=== PATIENT | male | born 1970 | race Caucasian/White ===

== ENCOUNTER 2019-02-16 22:29 | Inpatient (IN) ==
[2019-02-16] MEDS ORDERED: Aspirin 81 MG TAB.CHEW PO ONE (22:47)
[2019-02-16 23:07] LABS: Basophils # 0.1 K/mcL (0.0-0.2); Basophils % 0.7 %; Eosinophils # 0.3 K/mcL (0.0-0.6); Hemoglobin 16.3 g/dL (12.9-16.9); Immature Granulocytes % 0.3 % (0-4); Lymphocytes % 33.3 %; Mean Corpuscular Hemoglobin 29.3 pg (28.0-33.3); Mean Corpuscular Volume 86.3 fL (83.0-100.0); Mean Platelet Volume 9.9 fL (9.4-12.4); Monocytes # 0.7 K/mcL (0.0-1.3); Monocytes % 7.7 %; Neutrophils # 4.9 K/mcL (1.6-8.9); Platelet Count 305 K/mcL (140-400); Red Blood Count 5.56 M/mcL (4.19-5.50); Red Cell Distribution Width 12.7 % (11.5-14.5)
[2019-02-16 23:14] LABS: Prothrombin Time 10.7 Seconds (9.4-12.1)
[2019-02-16] MEDS: Nitroglycerin 0.4 MG TAB.SUBL SL PRN ×2 (23:14→23:21)
[2019-02-16 23:16] LABS: Activated Partial Thrombo Time 32.2 Seconds (26.0-36.0)
[2019-02-16 23:26] LABS: BUN/Creatinine Ratio 13 (6-26); Blood Urea Nitrogen 15 mg/dL (6-20); Calcium 9.3 mg/dL (8.6-10.3); Carbon Dioxide 26 mEq/L (23-29); Chloride 106 mEq/L (98-107); Glucose 123 mg/dL (70-105); Osmolality,Calculated 290 (280-300); Potassium 3.9 mEq/L (3.5-5.1); Sodium 139 mEq/L (136-145); eGFR For Non-African Americans > 60 (> 60)
[2019-02-16 23:27] LABS: Troponin I < 0.03 ng/mL (< 0.04)
--- NOTE | 2019-02-16 23:57 | Emergency Department Note ---
Disposition Clinical Impression: Chest pain Qualifiers: Chest pain type: unspecified Qualified Code(s): R07.9 - Chest pain, unspecified Disposition: Home, Self-Care Condition: Fair Time of Disposition: 00:18 Chest Pain HPI - General Chief Complaint: ED Chest Pain Stated Complaint: "CP, both arms tingling" Time Seen by Provider: 02/16/19 22:41 Source: patient Limitations: no limitations Vital Signs Reviewed: Yes Nursing Notes Reviewed: Yes - History of Present Illness HPI Narrative: 48-year-old male presents from home with bedside for evaluation of chest pain. He has had 2 days of what he describes as acid reflux symptoms which she described as a epigastric burning sensation with no belching or odd taste in his mouth.. Somewhat improved with Tums. He has no history of acid reflux. Today, 45 minutes prior to arrival, patient began having sharp burning left-sided chest pain which radiated to the bilateral arms and was associated with nausea and dry heaving. No dyspnea or diaphoresis. PMH: None Daily medications: None Habits: Current every day 1 pack per day smoker 15 years Family history: Brother from [place] in his mid 50s. Both parents had [place] at age is less than 65. ROS: Positive: Epigastric symptoms, left-sided sharp stabbing chest pain, nausea, dry heaving, bilateral arm pain Negative: Fever, chills, palpitations, dyspnea, diaphoresis, unusual back pain, flank pain, change of bowel or bladder habits Severity scale (1-10): 4 - Related Data Home Medications Medication Instructions Recorded Confirmed Fluticasone Propionate Nasal 16 gm NS DAILY 02/16/19 02/16/19 [Flonase] Previous Rx's Medication Instructions Recorded Loratadine [Claritin] 10 mg PO DAILY #14 tablet 02/17/16 Allergies Allergy/AdvReac Type Severity Reaction Status Date / Time No Known Allergies Allergy Verified 02/17/16 11:01 All systems ED: reviewed and negative except as stated. Review of Systems: As Per HPI Chest Pain PMH - Past Medical History Medical history: Reports: no medical history Psychiatric history: Reports: no psych history - Social History Smoking Status: Current every day smoker Alcohol use: Reports: none Drug use: Reports: marijuana Physical Exam Vital Signs Reviewed General: Patient is alert, oriented, and in no acute distress. Head: atraumatic, normocephalic Eye: normal appearance, PERRL, EOMI, no scleral icterus, no conjunctival injection ENT: mucous membranes moist, normal external ear exam Neck: normal inspection, trachea midline, full ROM Chest: normal inspection, symmetric chest rise Respiratory: Good respiratory effort. Bilateral breath sounds are clear without wheezing, crackles, or rhonchi. Cardiovascular: Regular rate and rhythm. No clicks, rubs, gallops, or murmors. Normal heart sounds. Vital radial and posterior tibial pulses 2/4 equal. No pedal edema. Abdomen: Bowel sounds present normoactive. Abdomen is soft, nondistended, and nontender. No guarding or rebound. No organomegaly noted. Musculoskeletal: Spontaneously moving all extremities. Skin: warm, dry, intact. Neuro: GCS 15. No focal neurologic deficits observed. Psych: Patient's affect is appropriate for situation. - General Limitations: no limitations General appearance: alert Course Course Narrative: EKG #1 EKG dated 02/16/19 at 22:30 interpreted as sinus rhythm with a rate of 66. SC 150, QRS 105, QTC 394. Left axis. Nonspecific ST-T changes. No previous EKG for comparison. Computer readout shows anterior IL; this is incorrect EKG #1 shows no acute ischemic changes. Chest x-ray is unremarkable. Initial laboratory values unremarkable; initial troponin is within normal limits. This is, however, less than one hour after onset of his most acute chest pain. Patient's chest pain did improve somewhat with nitroglycerin. In the beginning to return. We will apply nitroglycerin paste. I discussed the above with the patient in detail. I am clinically concerned given his family history, his story, and risk factors of smoking. He is in agreement with admission for continued evaluation of his chest pain. EKG #2 EKG dated 02/17/2019 at 00:15 interpreted as sinus rhythm with rate of 57. SC 141, QRS 104, QTC 411. Normal axis. Nonspecific ST-T changes. No acute ischemic changes compared to EKG #1 above. I discussed the above with the admitting hospitalist, Dr. Helms, who agrees to accept the patient for continued evaluation monitoring of his chest pain. Chest X-Ray 02/16/19 22:47 IMPRESSION: No acute cardiopulmonary process D/ / Charly Shahid / Charly Shahid Interpreting Provider: Charly Shahid Vital Signs Temperature 99.0 F 02/16/19 22:43 Pulse Rate 65 02/16/19 22:43 Respiratory Rate 16 02/16/19 22:43 Blood Pressure 175/109 02/16/19 22:43 O2 Sat by Pulse Oximetry 99 02/16/19 22:43 Temperature 99.0 F 02/16/19 22:43 Pulse Rate 60 02/17/19 00:06 Respiratory Rate 16 02/17/19 00:06 Blood Pressure 151/93 02/17/19 00:06 O2 Sat by Pulse Oximetry 97 02/17/19 00:06 Oxygen Delivery Oxygen Delivery Room Air Chest Pain - Lab Data Result diagrams: 02/16/19 22:53 02/16/19 22:53 Lab Results 02/16/19 02/16/19 02/16/19 Range/Units 22:53 22:53 22:53 WBC 8.9 (4.3-11.1) K/mcL RBC 5.56 H (4.19-5.50) M/mcL Hgb 16.3 (12.9-16.9) g/dL Hct 48.0 (37.5-50.1) % MCV 86.3 (83.0-100.0) fL MCH 29.3 (28.0-33.3) pg MCHC 34.0 (31.6-35.5) g/dL RDW 12.7 (11.5-14.5) % Plt Count 305 (140-400) K/mcL MPV 9.9 (9.4-12.4) fL Immature Gran % 0.3 (0-4) % Seg Neutrophils % 55.0 % Lymphocytes % 33.3 % Monocytes % 7.7 % Eosinophils % 3.0 % Basophils % 0.7 % Neutrophils # 4.9 (1.6-8.9) K/mcL Lymphocytes # 3.0 (0.6-4.6) K/mcL Monocytes # 0.7 (0.0-1.3) K/mcL Eosinophils # 0.3 (0.0-0.6) K/mcL Basophils # 0.1 (0.0-0.2) K/mcL PT 10.7 (9.4-12.1) Seconds INR 1.0 APTT 32.2 (26.0-36.0) Seconds Sodium 139 (136-145) mEq/L Potassium 3.9 (3.5-5.1) mEq/L Chloride 106 (98-107) mEq/L Carbon Dioxide 26 (23-29) mEq/L BUN 15 (6-20) mg/dL Creatinine 1.12 (0.70-1.30) mg/dL Est GFR ( Amer) > 60 (> 60) Est GFR (Non-Af Amer) > 60 (> 60) BUN/Creatinine Ratio 13 (6-26) Glucose 123 H (70-105) mg/dL Calculated Osmolality 290 (280-300) Calcium 9.3 (8.6-10.3) mg/dL Troponin I < 0.03 (< 0.04) ng/mL Heart Score - Score History: Moderately Suspicious EKG: Non Specific repolarisation Disturbance Age: 45-65 Risk Factors: 1-2 risk factors Troponin: Less than normal limit HEART Score Total: 4 Attestation Statement - Attestation Attestation: Resident Attestation: I examined this patient and my medical decision making was reviewed with the Resident Physician. I agree with the documented findings, disposition and treatment plan as described except to the extent set forth below. We independently had [id number] contact with the patient. EKG reviewed with resident physician. Agree with documentation. Patient presenting for evaluation of chest pain. Chest pain started a serous trying to go to bed. Chest pain in the center left side of his chest with radiation down both arms. No radiation to the back. Normal strength and sensation throughout the upper extremities as well as radial pulses are +2. Patient has no abdominal pain or back pain. Patient's symptoms improved with nitroglycerin and started to return. Patient will be given further nitroglycerin. The patient regular rhythm with no murmurs rubs or gallops, lungs clear to auscultation bilaterally, no significant peripheral edema. EKG without meeting STEMI criteria. Patient initial troponin is negative. Pain started just prior to arrival. Patient will require repeat troponin as well as further cardiac testing given his multiple risk factors as well as family history.
[2019-02-16] MEDS ORDERED: Nitroglycerin 1 INCH/GM PACKET TP ONE (23:58)
[2019-02-17] MEDS ORDERED: Naloxone 0.4 MG/ML INJ IVP PRN (04:36)
--- NOTE | 2019-02-17 05:09 | Internal Med History&Physical ---
Date of Encounter: 02/17/19 Time of Encounter: 04:00 Internal Medicine - H&P: HPI Chief complaint: Chest Pain Admitted From: Home Plans for Post Hospital Care: Home History of present illness: Mr. Dyson is a 48 year old male with no significant past medical history or daily medications who presents for complaints of sharp and dull chest pain across chest radiating to both arms associated with nausea. Has been having chest discomfort past two days which he thought was acid reflux, however pain became more severe and radiated down his arms. Attempted using tums at home without much improvement. Pain improved with SL nitro and aspirin in ER and then started to return so was given nitro paste which completely resolved symptoms. ER reported EKG as sinus rhythm with nonspecific ST-T changes but no acute ischemic changes. ER also obtained chest xray which showed no acute cardiopulmonary process. Patient remains pain free at this time. Currently denies any headache, chest pain, shortness of breath, abdominal pain, nausea, bowel or bladder changes. Reports significant family history of cardiovascular disease in both parents along with a brother that is from [place] in his mid 50's. Also both parents with history of [place]. Reports having a echocardiogram around 3-5 years ago which was normal as far as he knows. Denies any previous cardiac stress testing. Reports having the echocardiogram to evaluate a possible heart murmur. Reports smoking pack of cigarettes per day. Denies any alcohol or drug use. Past Med Surg Social Fam HX - Past Medical History Medical history: no medical history Psychiatric history: no psych history - Social History Smoking Status: Current every day smoker Packs per day: 1 Smokeless Tobacco Status: No Alcohol use: none Drug use: none - Family History Mother Living Status: Cause of : heart failure Hx Family Cardiac Disorders: Yes Hx Family Respiratory Disorders: No Hx Family Cancer: No Hx Family GI Disorders: No Hx Family Genitourinary Disorders: No Hx Family Endocrine Disorder: No Hx Family Musculoskeletal Disorders: No Hx Family Neuromuscular Disorders: No Hx Family Neurologic Disorders: No Hx Family HEENT Disorders: No Hx Family Autoimmune Disorders: No Hx Family Reproductive Disorders: No Hx Family Psychosocial Disorders: No Hx Family Medical Disorders: No Father Living Status: Still Living Hx Family Cardiac Disorders: Yes (open heart sx) Hx Family Respiratory Disorders: Yes (copd) Hx Family Cancer: Yes (prostate ca) Hx Family Genitourinary Disorders: No Hx Family Endocrine Disorder: No Hx Family Musculoskeletal Disorders: No Hx Family Neuromuscular Disorders: No Hx Family Neurologic Disorders: No Hx Family HEENT Disorders: No Hx Family Autoimmune Disorders: No Hx Family Reproductive Disorders: No Hx Family Psychosocial Disorders: No Hx Family Medical Disorders: No Brother Living Status: Hx Family Cardiac Disorders: Yes Internal Medicine - H&P: Meds Loratadine [Claritin] 10 mg PO DAILY #14 tablet 02/17/16 [Rx] Fluticasone Propionate Nasal [Flonase] 16 gm NS DAILY 02/16/19 [History] Allergy/AdvReac Type Severity Reaction Status Date / Time No Known Allergies Allergy Verified 02/17/16 11:01 All Systems PM: A 10-system review of systems was performed and is negative for pertinent findings except as documented above in the HPI. - Constitutional Vitals: Temp Pulse Resp BP Pulse Ox 99.0 F 60 16 151/93 97 02/16/19 22:43 02/17/19 00:06 02/17/19 00:06 02/17/19 00:06 02/17/19 00:06 Exam: General: Alert and oriented. Skin:Normal color, no rash, no lesions. HEENT:Pupils equal, round and reactive. Cardiovascular:Normal S1 & S2, no rubs, murmurs or gallops. No JVD. Pulse regular. Lungs:Breath sounds decreased, no wheezes or crackles. Abdomen:Soft, non-tender, no rigidity. Extremities:No deformity, no edema or tenderness, no joint swelling or clubbing. Neurological:Normal cognition and motor skills. Pulses:Carotid and radial pulses normal +2. Rest of the physical exam is non contributory. Internal Med - H&P Results - Labs CBC & Chem 7: 02/16/19 22:53 02/16/19 22:53 Labs: Short CBC 02/16/19 Range/Units 22:53 WBC 8.9 (4.3-11.1) K/mcL Hgb 16.3 (12.9-16.9) g/dL Hct 48.0 (37.5-50.1) % Plt Count 305 (140-400) K/mcL Neutrophils # 4.9 (1.6-8.9) K/mcL BMP 02/16/19 22:53 Sodium 139 Potassium 3.9 Chloride 106 Carbon Dioxide 26 BUN 15 Creatinine 1.12 Glucose 123 H Calcium 9.3 Cardiac Enzymes 02/16/19 Range/Units 22:53 Troponin I < 0.03 (< 0.04) ng/mL - Impressions ITS Impressions Chest X-Ray 02/16/19 22:47 IMPRESSION: No acute cardiopulmonary process D/ / Charly Shahid / Charly Shahid Interpreting Provider: Charly Shahid - Assessment and Plan (1) Chest pain Current Visit: Yes Status: Acute Assessment and plan: Currently resolved after nitro paste. Continuous cardiac monitoring. Initial troponin negative, serial troponins ordered. Echocardiogram ordered. Cardiology consult ordered, will need called in a.m. Qualifiers: Chest pain type: unspecified Qualified Code(s): R07.9 - Chest pain, unspecified (2) Tobacco abuse Current Visit: Yes Status: Chronic Assessment and plan: Cessation strongly encouraged. (3) DVT prophylaxis Current Visit: Yes Status: Acute Assessment and plan: Subcutaneous heparin. - Time Spent With Patient Total time spent is greater than 50% in coordination of care (as documented) at patient's floor/unit and/or counseling patient:
[2019-02-17] MEDS ORDERED: Acetaminophen 325 MG TABLET PO PRN (05:50)
[2019-02-17] MEDS ORDERED: *HR* Heparin 5,000 UNIT/ML VIAL SQ SCH (06:00)
[2019-02-17] MEDS ORDERED: Ibuprofen 400 MG TABLET PO ONE (06:03)
[2019-02-17] MEDS ORDERED: *HR* Heparin 5,000 UNIT/ML VIAL IVP ONE (08:32)
[2019-02-17] MEDS ORDERED: *HR* Heparin 5,000 UNIT/ML VIAL IVP PRN ×2 (08:32)
[2019-02-17] MEDS ORDERED: Heparin 25,000 UNIT/250 ML D5W 25,000 UNIT/250 ML IV.SOLN IVC SCH (08:45)
[2019-02-17 10:19] LABS: Hematocrit 47.2 % (37.5-50.1); Hemoglobin 15.9 g/dL (12.9-16.9); Mean Corpuscular HGB Conc 33.7 g/dL (31.6-35.5); Mean Corpuscular Hemoglobin 29.3 pg (28.0-33.3); Mean Corpuscular Volume 86.9 fL (83.0-100.0); Platelet Count 296 K/mcL (140-400); Red Blood Count 5.43 M/mcL (4.19-5.50); Red Cell Distribution Width 12.7 % (11.5-14.5)
[2019-02-17 10:24] LABS: Heparin anti-factor XA UFH 0.03 IU/mL (0.30-0.70)
[2019-02-17 10:25] LABS: INR 0.9; Prothrombin Time 10.1 Seconds (9.4-12.1)
[2019-02-17] MEDS: Loratadine 10 MG TABLET PO SCH (11:10)
[2019-02-17] MEDS: Nicotine 21 MG PATCH.TD24 TD SCH (11:10)
[2019-02-17] MEDS: Fluticasone Propionate Nasal 50 MCG/SPRAY BOTTLE NS SCH (11:11)
--- NOTE | 2019-02-17 11:17 | Cardiology Consult Note ---
Date of Encounter: 02/17/19 Time of Encounter: 11:15 Assessment and Plan (1) NSTEMI (non-ST elevated myocardial infarction) Current Visit: Yes Status: Acute Presents with sharp and dull chest pain across chest radiating to both arms associated with nausea that started last night. Reported reflux symptoms for 2 days prior. Attempted using tums at home without much improvement. Pain improved with SL nitro. EKG sinus rhythm no acute ischemic changes. Initial troponin negative then 1.03, 1.25. Currently chest pain free. On heparin gtt. Will start ASA, Statin, BB. TTE to evaluate structure and function. Recommend [facility]. R/B/A discussed. Pt agrees to proceed. He is [facility]. Case management contacted and will contact [facility] for approval. [facility] today if approved. (2) Tobacco abuse Current Visit: Yes Status: Chronic Smoking cessation counseling given. Discussion w patient/family: The assessment and plan as outlined above was discussed with the patient and/or family members who expressed understanding and agreement. All questions were answered. Thank you for involving us in the care of your patient. Please call with any questions. History of Present Illness Consult date: 02/17/19 Consult reason: NSTEMI Chief complaint: chest pain History of present illness: Mr. Dyson is a 48 year old male with PMH of tobacco abuse who presents for complaints of sharp and dull chest pain across chest radiating to both arms associated with nausea that started last night. Reported reflux symptoms for 2 days prior. Attempted using tums at home without much improvement. Pain improved with SL nitro and aspirin in ER and then started to return so was given nitro paste which completely resolved symptoms. EKG as sinus rhythm no acute ischemic changes. Initial troponin negative then 1.03, 1.25. Cardiology consulted for further recs. Past Med Surg Social Fam HX - Past Medical History Medical history: no medical history Psychiatric history: no psych history - Social History Smoking Status: Current every day smoker Packs per day: 1 Smokeless Tobacco Status: No Alcohol use: none Drug use: none - Family History Mother Living Status: Cause of : heart failure Hx Family Cardiac Disorders: Yes Hx Family Respiratory Disorders: No Hx Family Cancer: No Hx Family GI Disorders: No Hx Family Genitourinary Disorders: No Hx Family Endocrine Disorder: No Hx Family Musculoskeletal Disorders: No Hx Family Neuromuscular Disorders: No Hx Family Neurologic Disorders: No Hx Family HEENT Disorders: No Hx Family Autoimmune Disorders: No Hx Family Reproductive Disorders: No Hx Family Psychosocial Disorders: No Hx Family Medical Disorders: No Father Living Status: Still Living Hx Family Cardiac Disorders: Yes (open heart sx) Hx Family Respiratory Disorders: Yes (copd) Hx Family Cancer: Yes (prostate ca) Hx Family Genitourinary Disorders: No Hx Family Endocrine Disorder: No Hx Family Musculoskeletal Disorders: No Hx Family Neuromuscular Disorders: No Hx Family Neurologic Disorders: No Hx Family HEENT Disorders: No Hx Family Autoimmune Disorders: No Hx Family Reproductive Disorders: No Hx Family Psychosocial Disorders: No Hx Family Medical Disorders: No Brother Living Status: Hx Family Cardiac Disorders: Yes Medications and Allergies Loratadine [Claritin] 10 mg PO DAILY #14 tablet 02/17/16 [Rx] Fluticasone Propionate Nasal [Flonase] 16 gm NS DAILY 02/16/19 [History] Allergy/AdvReac Type Severity Reaction Status Date / Time No Known Allergies Allergy Verified 02/17/16 11:01 All Systems Review: The remainder of the systems were reviewed and are negative - Cardiovascular Cardiovascular: as per HPI, chest pain at rest, chest pain with exertion, radiating jaw, neck or arm pain - Gastrointestinal Gastrointestinal: nausea Physical Examination Vital Signs, Last 4 Hours Temp Pulse Resp BP Pulse Ox 02/17/19 08:14 98.4 F 62 16 139/79 98 Vital Signs Temp Pulse Resp BP Pulse Ox 02/17/19 08:14 98.4 F 62 16 139/79 98 02/17/19 00:06 60 16 151/93 97 02/16/19 23:26 77 18 153/100 94 02/16/19 23:00 76 161/101 95 02/16/19 22:43 99.0 F 65 16 175/109 99 Intake and Output 02/16/19 02/17/19 02/17/19 23:59 07:59 15:59 Intake Total 200 / 200 Balance 200 / 200 Intake: Oral 200 / 200 Other: Meal Breakfast Percent of Meal Consumed 100% Weight 87.861 kg General: Conversant, No Apparent Distress HEENT: Atraumatic, Normocephaly, Mucus Membranes Moist Neck: No JVD, Normal carotid pulses Cardiac: Reg Rate and Rhythm, Normal S1 and S2, No Murmur Lungs: Normal Breath Sounds, No Wheeze, Rales, Rhonchi Neuro: Alert and responsive, No focal deficits noted Abdomen: Soft, Non-Tender Skin: No rashes noted on visualized skin Musculoskeletal: No Chest Wall Tenderness Extremities: No Clubbing, No Cyanosis, No Edema, Normal Pulses Results 02/17/19 09:57 02/16/19 22:53 Lab Results 02/16/19 02/16/19 02/16/19 22:53 22:53 22:53 WBC 8.9 Hgb 16.3 Hct 48.0 Plt Count 305 INR 1.0 APTT 32.2 Sodium 139 Potassium 3.9 Chloride 106 Carbon Dioxide 26 BUN 15 Creatinine 1.12 Glucose 123 H Calcium 9.3 Troponin I < 0.03 02/17/19 02/17/19 02/17/19 06:11 09:57 09:57 WBC 9.7 Hgb 15.9 Hct 47.2 Plt Count 296 INR 0.9 APTT Sodium Potassium Chloride Carbon Dioxide BUN Creatinine Glucose Calcium Troponin I 1.03 H* 02/17/19 09:57 WBC Hgb Hct Plt Count INR APTT Sodium Potassium Chloride Carbon Dioxide BUN Creatinine Glucose Calcium Troponin I 1.25 H* Short CBC 02/17/19 02/16/19 Range/Units 09:57 22:53 WBC 9.7 8.9 (4.3-11.1) K/mcL Hgb 15.9 16.3 (12.9-16.9) g/dL Hct 47.2 48.0 (37.5-50.1) % Plt Count 296 305 (140-400) K/mcL Neutrophils # 4.9 (1.6-8.9) K/mcL BMP 02/16/19 Range/Units 22:53 Sodium 139 (136-145) mEq/L Potassium 3.9 (3.5-5.1) mEq/L Chloride 106 (98-107) mEq/L Carbon Dioxide 26 (23-29) mEq/L BUN 15 (6-20) mg/dL Creatinine 1.12 (0.70-1.30) mg/dL Glucose 123 H (70-105) mg/dL Calcium 9.3 (8.6-10.3) mg/dL Cardiac Enzymes 02/17/19 02/17/19 02/16/19 Range/Units 09:57 06:11 22:53 Troponin I 1.25 H* 1.03 H* < 0.03 (< 0.04) ng/mL Impressions Chest X-Ray 02/16/19 22:47 IMPRESSION: No acute cardiopulmonary process D/ / Charly Shahid / Charly Shahid Interpreting Provider: Charly Shahid Active Medications Acetaminophen (Tylenol) 650 mg PO Q6HR PRN PRN Reason: Pain Stop: 08/19/19 05:51 Fluticasone Propionate (Flonase) 50 mcg NS DAILY CARLOS; Protocol Stop: 08/19/19 09:01 Heparin Sodium (Porcine) (Heparin) 6,200 unit 70 unit/kg (6200 unit) IVP Q6HR PRN PRN Reason: SEE COMMENTS Stop: 08/19/19 08:33 Heparin Sodium (Porcine) (Heparin) 3,100 unit 35 unit/kg (3100 unit) IVP Q6H PRN PRN Reason: SEE COMMENTS Stop: 08/19/19 08:33 Heparin Sodium/Dextrose (Heparin 25,000 Unit/250 Ml D5w) 25,000 unit in 250 mls @ 12.301 mls/hr IVC .[id number] CARLOS; Protocol Stop: 08/19/19 08:46 Loratadine (Claritin) 10 mg PO DAILY CARLOS; Protocol Stop: 08/19/19 09:01 Naloxone HCl (Narcan) 0.4 mg IVP Q2MPRN PRN PRN Reason: SEE COMMENTS Stop: 08/19/19 04:37 Nicotine (Nicoderm) 21 mg TD DAILY CARLOS; Protocol Stop: 08/19/19 09:01 Nitroglycerin (Nitroglycerin) 0.4 mg SL Q5MPRN PRN PRN Reason: Chest Pain Stop: 08/18/19 22:48 Last Admin: 02/16/19 23:21 Dose: 0.4 mg Documented by: - Imaging and Cardiology Echo: pending - EKG Interpretation EKG results cardiology: personally reviewed (SR) Consult Discharge Plan - Plan [facility]errals: [facility] [Primary Care Provider] -
[2019-02-17] MEDS ORDERED: *HR* LORazepam 2 MG/ML VIAL IVP PRN (11:24)
--- NOTE | 2019-02-17 12:32 | Electrocardiograph Report ---
[facility] Test Date: 2019-02-16 Pat Name: Mingo Dyson Department: 104 Room: 3B55 Gender: M It Security Analyst: Ximena : 1970 Requested By: Nicola Deluca Order Number: [id number] Reading MD: Mingo Coates Measurements Intervals [place] Rate: 66 P: 57 AR: 150 QRS: -31 QRSD: 105 T: 37 QT: 380 QTc: 394 Interpretive Statements SINUS RHYTHM MARKED LEFT AXIS DEVIATION POSSIBLE ANTERIOR MYOCARDIAL INFARCTION, OF INDETERMINATE AGE Electronically Signed On 02-17-2019 12:30:07 EDT by Mingo Coates
[2019-02-17] MEDS: Aspirin 81 MG TAB.CHEW PO SCH (12:38)
--- NOTE | 2019-02-17 13:05 | Pre-Sedation Evaluation ---
Pre-sedation evaluation - Pre-sedation checklist Date of procedure: 02/17/19 Procedure: cardiac cath Recent Vitals: Last Vital Signs Temp 98.6 F 02/17/19 11:17 Pulse 64 02/17/19 11:17 Resp 15 02/17/19 11:17 BP 147/83 02/17/19 11:17 Pulse Ox 96 02/17/19 11:17 H&P (including ROS) documented in medical record: Yes Previous reaction to sedatives/anesthetics: No Dietary Status: NPO after Midnight Airway Assessment: Patient can open mouth completely, TMJ function normal Dentition: No loose teeth or bridges Possible difficult airway: No ASA Classification *see protocol: CLASS II-Mild systemic disease Plan of Care: Pt appropriate candidate for procedure/moderate/conscious sedation
[2019-02-17] MEDS ORDERED: *HR* Heparin 10,000 UNIT/10 ML VIAL ONE (13:54)
[2019-02-17] MEDS ORDERED: Heparin 1,000 UNITS/500 mL 500 ML ONE (13:54)
[2019-02-17] MEDS ORDERED: 0.9 % Sodium Chloride 1,000 ML ONE ×2 (13:54)
[2019-02-17] MEDS ORDERED: ISOVUE-370 200 ML INFUS..BTL ONE ×2 (13:54→14:46)
[2019-02-17] MEDS ORDERED: Nitroglycerin 1,000 MCG/10 ML VIAL IV ONE (13:54)
[2019-02-17] MEDS ORDERED: *HR* Midazolam HCl 2 MG/2 ML VIAL ONE ×2 (14:03→14:29)
[2019-02-17] MEDS ORDERED: *HR* FentaNYL (PF) 100 MCG/2 ML VIAL ONE (14:21)
[2019-02-17] MEDS ORDERED: *HR* Ticagrelor 90 MG TABLET ONE ×2 (14:45)
--- NOTE | 2019-02-17 15:03 | Event Note ---
Date of Encounter: 02/17/19 Time of Encounter: 15:02 - Cardiology Event Note Cath completed LVEF 50% RCA normal ,dominant LCA mid lad diffuse disease with ulcerated plaque. bunny x 3 2.5 mm Recommend [facility] Medical therapy smoking cessation cardiac rehab.
[2019-02-17] MEDS ORDERED: Perflutren Lipid Microsphere 1.3 ML in 0.9 % Sodium Chloride 8.7 ML IVP ONE (15:09)
--- NOTE | 2019-02-17 15:19 | Invasive Diagnostic Lab Proc ---
Name: Mingo Dyson Date of Study: 02/17/2019 Date: 1970 Ht: 72.8in Medical Record#: [id number] Age: 48 Wt: 194.45lb Gender: Male BSA: 2.12 Order #: [id number] BMI: 25.8 Physicians Procedure Physician: Sidnye Hernandez MD Referring MD: Referring MD: Staff Name Position Time In Sites, Sherri RT (R) 02:08 PM ChengSera RT (R) RT 02:08 PM Sonia Roper RN Monitor 02:14 PM Miguel Grant RN Police Pilot 02:14 PM Abdullahi Maciel RN Nurse 02:15 PM Kim Gonzáles RT Scrub 02:15 PM Indications Indication Non-Stemi Procedures Performed Procedure L HRT ARTERY/VENTRICLE ANGIO PRQ CARD HECTOR STENT W/ANGIO 1 VSL Pre-Procedure Checklist Informed consent is complete signed and on chart. H&P is on chart. ID band is on and ID verified with patient. Patient NPO for procedure The procedure was described for the patient and questions were answered. Blood Pressure: 158/95 ECG is on chart. Plan of Care Patient will tolerate the procedure without complications. Adequate level of comfort will be maintained. Hemodynamics will remain stable Patient will recover from procedure without complications. Respiratory function will be maintained. Cardiac rhythm will remain stable. Patient temperature will be maintained. Patient and/or family have verbalized understanding of the procedure. Patient Education Chief Complaint/Reason for Test: Cardiac Cath Developmental Category: Adult (18-64 years) Developmentally Appropriate for Age: Yes Learning Barriers: None Education Needs: Procedure Education Method: Verbal Information Taught: Cardiac Cath Educational Evaluation: Able to repeat information Intravenous Access Time IV Size Location DC'd Fluid/Drip Rate Units RN 01:26 PM 22g 1" Patent On Arrival Rt Antecubital Allergies No Known Allergies Vital Signs Time BP (mmHg) HR (bpm) O2 Sat. RR (bpm) LOC 02:09 PM / % 5 = Fully awake and oriented or at pre-proc level 02:09 PM / % 5 = Fully awake and oriented or at pre-proc level 02:16 PM / % 4 = Oriented but drowsy 02:31 PM / % 4 = Oriented but drowsy 02:15 PM 158 / 95 69 99 % 02:19 PM 150 / 91 76 100 % 16 02:25 PM 154 / 94 56 100 % 22 02:30 PM 161 / 93 62 100 % 10 02:34 PM 149 / 97 54 99 % 18 02:39 PM 139 / 80 58 95 % 12 02:44 PM 151 / 100 56 97 % 18 02:49 PM 151 / 91 56 97 % 15 02:54 PM 150 / 95 56 99 % 11 02:59 PM 137 / 88 50 99 % 15 Procedural Medications Time Medication Dose Units Method Given By 02:16 PM Oxygen 2 L/min nasal cannula Miguel Grant RN 02:16 PM Versed 2 mg Intravenous Miguel Grant RN 02:22 PM Fentanyl 50 mcg Intravenous Miguel Grant RN 02:23 PM Lidocaine 2% 10 ml Subcutaneous Sidney Hernandez MD 02:29 PM Versed 2 mg Intravenous Miguel Grant RN 02:35 PM Heparin 4000 units Intravenous Miguel Grant RN 02:35 PM Nitroglycerin 200 mcg Intracoronary Sidney Hernandez MD 02:50 PM Brilinta 180 mg Orally Miguel Grant RN 02:53 PM Lidocaine 2% 10 ml Subcutaneous Sidney Hernandez MD ASA Classification: CLASS II- Mild systemic disease (i.e. well-controlled diabetes, hypertension, asthma, cigarette smoking) Lebron Score Preprocedure Postprocedure Activity 2- Moves 4 extremities sustained head lift Activity 2- Moves 4 extremities sustained head lift Circulation 2- SBP +/= 20 points of pre-anesthetic level Circulation 2- SBP +/= 20 points of pre-anesthetic level Consciousness 2- Awake and alert oriented x 3 Consciousness 2- Awake and alert oriented x 3 O2 Saturation 2- Able to maintain O2 satruation of 92% on room air O2 Saturation 2- Able to maintain O2 satruation of 92% on room air Respiratory 2- Able to deep breathe and cough well Respiratory 2- Able to deep breathe and cough well Total Score 10 Total Score 10 Contrast Agent: Isovue Fluoro Dose: 40 mGy Activated Clotting Time Time Seconds to Clot 02:34 PM 158 Procedure Log Time Note Enter By 02:08 PM [facility] Sherri Jon RT (R) Position:Scrub Time in: 14:08 oparker 02:08 PM Physician arrived 14:08 oparker 02:08 PM Rickie and david completed oparker 02:08 PM Sign in performed according to hospital policy. Informed consent was obtained. oparker 02:08 PM Sera Anand RT (R) Position: RT Time in: 14:08 oparker 02:09 PM Time: 14:08 Patient comfortable and pain free: Yes oparker 02:09 PM Time: 14:09LOC: 5 = Fully awake and oriented or at pre-proc level oparker 02:10 PM CathStat 02:10 PM Procedure start 14:10 oparker 02:10 PM Patient charges- Angio tray pack, Navilyst 3mm J, Pulse Oximetry and ACIST tubing and transducer oparker 02:13 PM Vitals capture started with the following parameters, Patient=Adult, Interval=5 min, Initial Afudswec=111 mmHg, Deflation Rate=5 mmHg, Cuff placed on Left Arm 02:14 PM Sonia Roper RN Position: Monitor Time in: 14:14 kmavis 02:15 PM Miguel Grant RN Position: Police Pilot Time in: 14:14 kmavis 02:15 PM Abdullahi Maciel RN Position: Nurse Time in: 14:15 kmavis 02:15 PM HR=69 bpm, NDJG=584/95 mmhg, SpO2=99 % 02:15 PM Kim Gonzáles RT Position: Scrub Time in: 14:15 kmavis 02:15 PM Case Delayed No kmavis 02:15 PM Hair removed from procedure site in procedure lab using clippers. Bilateral groin prepped with Chloraprep by Miguel Grant RN, then patient was draped. Skin intact. kmavis 02:16 PM Time: 14:09 Patient comfortable and pain free: Yes kmavis 02:16 PM Time: 14:09LOC: 5 = Fully awake and oriented or at pre-proc level kmavis 02:16 PM Time: 14:16 Oxygen on at 2 L/min per nasal cannula by Miguel Grant RN kmavis 02:16 PM Time: 14:16 Versed 2 mg Intravenous Given by Miguel Grant RN kmavis 02:17 PM Recorded ECG: HR=74 Condition=Condition 1 02:19 PM ASA Class CLASS II- Mild systemic disease (i.e. well-controlled diabetes, hypertension, asthma, cigarette smoking) kmavis 02:19 PM HR=76 bpm, YWFH=495/91 mmhg, RtP0=983.0 %, Resp=16 B/min, EtCO2=37 mmHg 02:20 PM Time out was performed according to hospital policy. 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 kmavis 02:21 PM Pressure channel 2 zeroed. 02:22 PM Time: 14:22 Fentanyl 50 mcg Intravenous Given by Miguel Grant RN [facility] 02:23 PM Time: 14:23 10 ml Lidocaine 2% to right groin Subcutaneous Given by Sidney Hernandez MD kmavis 02:25 PM HR=56 bpm, JPTH=064/94 mmhg, NsM2=740.0 %, Resp=22 B/min, EtCO2=33 mmHg 02:25 PM Access obtained by percutaneous puncture. 6Fr 10cm Terumo [place] sheath placed in right Femoral artery. [id number] kmavis 02:25 PM 6Fr FL 4 catheter inserted over the wire [facility] hospital[facility] 02: PM 0.035 145cm Navilyst 3mmJ wire [id number] kmavis 02:25 PM LCA angiography performed in multiple views. kmavis 02:26 PM Recorded Pressure: Ao, HR=57, Condition=Condition 1 (Aorta) Ao 144/82/107 02:28 PM Catheter removed kmavis 02:28 PM 6Fr FR 4 catheter inserted over the wire Critical access hospital[facility] 02:28 PM RCA angiography performed in multiple views. kmavis 02:29 PM Time: 14:29 Versed 2 mg Intravenous Given by Miguel Grant RN avis 02:30 PM HR=62 bpm, MIRH=267/93 mmhg, LxF5=700.0 %, Resp=10 B/min, EtCO2=33 mmHg 02:30 PM Catheter removed kmavis 02: PM 6Fr Pigtail catheter inserted over the wire [facility] kmavis 02: PM Catheter crossed the aortic valve and was selectively placed in the left ventricle. Pressures recorded on pullback for left heart catheterization. kmavis 02:31 PM Time: 14:16 Patient comfortable and pain free: Yes kmavis 02:31 PM Time: 14:16LOC: 4 = Oriented but drowsy kmavis 02:31 PM Recorded Pressure: LV, HR=56, Condition=Condition 1 (Left Ventricle) LV 152/8/19 02:32 PM Recorded Pressure: LV, HR=54, Condition=Condition 1 (Left Ventricle) LV 153/9/18 02:32 PM Recorded Pressure: LV, Ao, HR=59, Condition=Condition 1 (Left Ventricle) LV 153/-2/14, (Aorta) Ao 152/78/110 02:32 PM Bolus angiogram of left Ventricle complete: hand injected contrast kmavis 02:32 PM Catheter removed kmavis 02:33 PM 6Fr JL4 Runway guide catheter was used to cannulate the PCI vessel successfully. reused? No kmavis 02:34 PM .014 Balance 300cm guide wire across target lesion- successful. reused? No kmavis 02:34 PM Inflation device was opened. kmavis 02:34 PM HR=54 bpm, EQTK=636/97 mmhg, SpO2=99.0 %, Resp=18 B/min, EtCO2=39 mmHg 02:35 PM At 14:34 the ACT was 158 seconds. kmavis 02:35 PM Time: 14:35 Heparin 4000 units Intravenous Given by Miguel Grant RN kmavis 02:35 PM Time: 14:35 Nitroglycerin 200 mcg Intracoronary Given by Sidney Hernandez MD kmavis 02:38 PM PCI lesion in Mid LAD. Pre Stenosis: 75 Pre BOBBY Flow: kmavis 02:39 PM 2.5mm x 12mm Synergy drug-eluting stent across target lesion- successful Lot #[id number] kmavis 02:39 PM HR=58 bpm, UOIS=850/80 mmhg, SpO2=95.0 %, Resp=12 B/min, EtCO2=21 mmHg 02:41 PM Stent deployed @ 11 [address] for 30 seconds kmavis 02:42 PM Stent delivery system removed intact. kmavis 02:42 PM Recorded Pressure: Ao, HR=61, Condition=Condition 1 (Aorta) Ao 148/91/116 02:43 PM 2.5mm x 12mm Synergy drug-eluting stent across target lesion- successful Lot #[id number] kmavis 02:44 PM Stent deployed @ 11 [address] for 30 seconds kmavis 02:44 PM HR=56 bpm, CITJ=641/100 mmhg, SpO2=97.0 %, Resp=18 B/min, EtCO2=37 mmHg 02:45 PM Stent delivery system removed intact. kmavis 02:46 PM Time: 14:31LOC: 4 = Oriented but drowsy kmavis 02:46 PM Time: 14:31 Patient comfortable and pain free: Yes kmavis 02:47 PM 2.5mm x 12mm Synergy drug-eluting stent across target lesion- successful Lot #[id number] kmavis 02:49 PM Stent deployed @ 13 [address] for 30 seconds kmavis 02:49 PM HR=56 bpm, DVEE=903/91 mmhg, SpO2=97.0 %, Resp=15 B/min, EtCO2=35 mmHg 02:49 PM Stent delivery system removed intact. kmavis 02:50 PM Time: 14:50 Brilinta 180 mg Orally Given by Miguel Grant RN kmavis 02:50 PM Recorded Pressure: Ao, HR=51, Condition=Condition 1 (Aorta) Ao 155/84/113 02:52 PM Guide catheter removed intact. kmavis 02:52 PM Guide wire removed intact. kmavis 02:52 PM Procedure completed at 14:52 02/17/2019 kmavis 02:53 PM Time: 14:53 10 ml Lidocaine 2% to right groin Subcutaneous Given by Sidney Hernandez MD kmavis 02:54 PM Sign out completed: Radiation Dose 404.31 mGy, 39.6 Gy/cm2 Fluoro Time: 8.5 Isovue 370 - 200ml contrast ml given by Sidney Hernandez MD. Complications: None. The patient was discharged out of the tanbark laborer in stable condition. Sedation minutes 30. Cardiac Rehab Consult needed: No. Confirmed administered medications: Yes kmavis 02:54 PM Isovue 370 - 200ml,2 Bottle(s) used. kmavis 02:54 PM HR=56 bpm, AJDL=476/95 mmhg, SpO2=99.0 %, Resp=11 B/min 02:54 PM Arterial sheath pulled, Perclose closure device used and was Successful [id number] S/N. kmavis 02:55 PM Estimated Blood Loss: minimal kmavis 02:55 PM Post ECG Sinus Bradycardia kmavis 02:55 PM Post Blood Pressure 150/95 kmavis 02:55 PM Information taught Cardiac Cath, PCI, and Perclose kmavis 02:55 PM Education needs Procedure, Plan of Care, and Disease Process kmavis 02:57 PM Did you address BOBBY flow and Dominance? YesCoronary Dominance: right kmavis 02:58 PM Learning barriers :None kmavis 02:58 PM Education Methods Verbal kmavis 02:58 PM Education evaluation Able to repeat information kmavis 02:58 PM Site status No bleeding/hematoma - Rt Groin as reported by Kim Gonzáles RT at 14:58 kmavis 02:58 PM Opsite applied kmavis 02:59 PM Report given to Bushra WELLS Pt taken to 3B Room #55. 14:59 kmavis 02:59 PM Plavix, Effient or Brilinta given Yes kmavis 02:59 PM Delay to floor No kmavis 02:59 PM HR=50 bpm, NPKC=046/88 mmhg, SpO2=99.0 %, Resp=15 B/min 03:02 PM Patient out of room: 15:02 kmavis 03:02 PM Family placed in consult room. kmavis 03:02 PM Complications: None kmavis 03:02 PM Coronary Dominance: right kmavis 03:03 PM Mid/Distal Left Anterior Descending Coronary Artery and diagonal branches with 75% stenosis. If graft is supplying this area, 0 % stenosis kmavis Complications Complication None None Hemodynamics Pressures Site Systolic/A Wave Diastolic/V Wave Mean AO 144 82 107 LV 152 8 19 LV 153 9 18 LV 153 -2 14 AO 152 78 110 AO 148 91 116 AO 155 84 113 Post Procedure Information Blood Pressure: 150/95 mmHg Rhythm: Sinus Bradycardia Post procedural instructions were given Closure Device Time Device Success/Fail 02/17/2019 3:04:00 PM Perclose ProGlide Successful Site Checks Time Location Status Staff Sheath In? Note 02:58 PM Rt Groin No bleeding/hematoma Kim Gonzáles RT Pulses Time Site Pre-Procedure Post-Procedure Note 02/17/2019 1:26:00 PM Bilateral DP & PT 2+ Updated by Miguel Grant RN on 02/17/2019 3:11:03 PM electronically signed on 02/17/2019 3:12:03 PM with status of Final
--- NOTE | 2019-02-17 21:26 | Electrocardiograph Report ---
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
[2019-02-18 07:35] VITALS: BP 127/81
[2019-02-18] MEDS: Aspirin 81 MG TAB.CHEW PO SCH (08:52)
[2019-02-18] MEDS: Loratadine 10 MG TABLET PO SCH (08:52)
[2019-02-18] MEDS: Nicotine 21 MG PATCH.TD24 TD SCH (08:52)
[2019-02-18] MEDS: Fluticasone Propionate Nasal 50 MCG/SPRAY BOTTLE NS SCH (08:53)
[2019-02-18] MEDS ORDERED: *HR* Ticagrelor 90 MG TABLET PO SCH (09:00)
--- NOTE | 2019-02-18 09:51 | Discharge Summary ---
- NOTES TO OUTPATIENT PROVIDER Notes to Outpatient Provider: f/u with cardiology within 2 weeks. f/u with PCP within a week. Date of Encounter: 02/18/19 Time of Encounter: 09:47 - Discharge Diagnosis (1) NSTEMI (non-ST elevated myocardial infarction) Priority: Primary Status: Acute (2) Tobacco abuse Priority: Secondary Status: Chronic (3) DVT prophylaxis Priority: Primary Status: Acute Hospital course: Mr. Dyson is a 48 year old male with no significant past medical history or daily medications who presents for complaints of sharp and dull chest pain across chest radiating to both arms associated with nausea. Has been having c hest discomfort past two days which he thought was acid reflux, however pain became more severe and radiated down his arms. Attempted using tums at home without much improvement. Pain improved with SL nitro and aspirin in ER and then started to return so was given nitro paste which completely resolved symptoms. ER reported EKG as sinus rhythm with nonspecific ST-T changes but no acute ischemic changes. ER also obtained chest xray which showed no acute cardiopulmonary process. Reports smoking pack of cigarettes per day. Denies any alcohol or drug use. Second set of troponin was elevated to 1.03, heparin drip was started, cardiology was consulted, LHC was performed which revealed a 75% stenosis with ulcerated plaque in mid LAD, HECTOR stent was placed. After the procedure, patient chest pain has resolved, arterial puncture site was clean without hematoma. Patient was placed on DAPT, statins, and metoprolol per cardiology. He is discharged home today, smoking cessation again was discussed with patient, home medications including aspirin and Brilinta were reviewed again with patient. He was instructed to continue follow-up PCP and cardiology as scheduled. Discharge discussed with: patient Time spent discussing smoking cessation with patient: more than 10 minutes - Time Spent with Patient Total time spent providing and/or coordinating discharge services: Time spent: Greater than 30 minutes - Discharge Medications Prescriptions: New Aspirin 81 mg PO DAILY #30 tab.chew Ticagrelor [Brilinta] 90 mg PO BID #60 tablet Atorvastatin [Lipitor] 80 mg PO HS #30 tablet Metoprolol [Lopressor] 25 mg PO BID #60 tablet Nicotine Patch [Nicoderm] 21 mg TD DAILY #30 patch.td24 Nitroglycerin 0.4 mg SL Q5MPRN PRN #10 tab.subl PRN Reason: Chest Pain Continued Loratadine [Claritin] 10 mg PO DAILY #14 tablet Fluticasone Propionate Nasal [Flonase] 16 gm NS DAILY Home Medications: Loratadine [Claritin] 10 mg PO DAILY #14 tablet 02/17/16 [Rx] Fluticasone Propionate Nasal [Flonase] 16 gm NS DAILY 02/16/19 [History] Aspirin 81 mg PO DAILY #30 tab.chew 02/18/19 [Rx] Atorvastatin [Lipitor] 80 mg PO HS #30 tablet 02/18/19 [Rx] Metoprolol [Lopressor] 25 mg PO BID #60 tablet 02/18/19 [Rx] Nicotine Patch [Nicoderm] 21 mg TD DAILY #30 patch.td24 02/18/19 [Rx] Nitroglycerin 0.4 mg SL Q5MPRN PRN #10 tab.subl 02/18/19 [Rx] Ticagrelor [Brilinta] 90 mg PO BID #60 tablet 02/18/19 [Rx] Allergies/Adverse Reactions: Allergy/AdvReac Type Severity Reaction Status Date / Time No Known Allergies Allergy Verified 02/17/16 11:01 Date of admission: 02/17/19 13:26 [facility] care physician: [facility] Consults: 02/17/19 04:42 Consult to Cardiology [CONS] Routine Comment: Consulting Provider: Cardiology [facility] Reason for Consult: Chest pain releived with nitro. Nonspecific ST-T changes on EKG. Significant family history including brother in mid 50's from [place]. Call Completed: No Anticipated date of discharge: 02/18/19 - Constitutional Vitals: Temp Pulse Resp BP Pulse Ox 98.8 F 70 17 127/81 98 02/18/19 07:34 02/18/19 07:34 02/18/19 07:34 02/18/19 07:34 02/18/19 07:34 Exam: PHYSICAL EXAMINATION: GENERAL APPEARANCE: The patient is alert, oriented and in no acute distress. HEENT: Head is normocephalic. The sinuses are nontender. Pupils are equal and reactive. The nares are patent. Oropharynx clear without lesions. NECK: Supple without lymphadenopathy. HEART: Regular rate and rhythm. LUNGS: No crackles or wheezes are heard. ABDOMEN: Soft, nontender, nondistended with good bowel sounds heard. Inguinal area is normal. EXTREMITIES: Without cyanosis, clubbing or edema. NEUROLOGICAL: Gross nonfocal. SKIN: Warm and dry without any rash. - Patient Status Disposition: Home, Self-Care Condition: Fair Functional capacity at discharge: independent ambulation Overall status at discharge: patient is progressing back to baseline - Discharge Instructions Follow Up With: Easton Hoffmann MD [Partnered Physician] - (Appointment has been requested) Mikey Johnson MD [Partnered Physician] - (Appointment has been requsted,) [facility],PCP [Primary Care Provider] - - Diet and Activity Activity: increase activity as tolerated Diet: low fat, low cholesterol, low salt diet
--- NOTE | 2019-02-18 11:40 | Cardiology Progress Note ---
Date of Encounter: 02/18/19 Time of Encounter: 10:00 Assessment and Plan (1) NSTEMI (non-ST elevated myocardial infarction) Current Visit: Yes Status: Acute Patient presented with chest pain and was found to have non-STEMI. Troponin elevation up to 1.25. [facility] recommended and completed on 02/17/2019. He was found to have moderate single vessel CAD. He received PCI with drug-eluting stent to his mid LAD. EF 50%. No complication from his procedure. TTE is pending. Cardiac rehabilitation ordered. Outpatient cardiology follow-up will be coordinated in one to 2 weeks. Importance of DAPT with aspirin and Brilinta uninterrupted for a minimum of 1 y ear reviewed with patient. He currently has health care through the [place] system and receives prescriptions through them. Continue statin and beta nicholas. If there is no significant abnormalities on TTE cardiology will sign off. RISK FACTORS: STOP SMOKING: If you smoke, STOP. Smoking or tobacco use significantly increases your risk of heart disease because nicotine causes the arteries to narrow or constrict. It also causes fats to stick to the artery. Your chances of having a heart attack are greatly increased if you continue to smoke. For more information, call the education line for smoking cessation 1-191-VHILKQX EAT A LOW FAT/CHOLESTEROL/SODIUM DIET: This diet may help reduce your chances of having a heart attack. LIFTING: Avoid lifting anything more than 10 pounds for 5-7 days Prior to straining, laughing, sneezing and/or coughing, apply manual pressure directly over insertion site. ACTIVITY: You may walk or climb stairs as tolerated You can resume sexual activity as tolerated In general, you are encouraged to engage in a minimum of 30 minutes or more of moderate intensity physical activity, such as brisk walking, daily or at least 3-4 times weekly BATHING Do not submerge the site into water (bath tub, hot tub, swimming pool) for 1 week. This can be a source for infection into the blood stream. You may shower after 24 hours SITE CARE: After 24 hours, you may remove the dressing and leave the site open to air. Keep the site clean and dry. Clean gently and pat dry. You can expect bruising and tenderness that gradually resolve within a week or two. Return to work as instructed per your physician Resume driving as instructed per physician Keep all scheduled follow up appointments Resume medications as instructed IMPORTANT: If prescribed a Platelet Aggregation Inhibitor such as, Plavix, Brilinta or Effient: Duration of therapy is minimum one year These medications are often used in combination with Aspirin in prevention of future heart attacks Never discontinue unless consult with your Die Cutter Apprentice STROKE (CVA) Risk factors for a stroke are: Age, cigarette smoking, diabetes, excessive alcohol consumption, family history, high blood pressure, overweight, physical inactivity, prior stroke, heart attack, diagnosis of carotid artery stenosis or other artery disease. Warning signs: Sudden numbness or weakness of the face, arm or leg; especially on one side of the body, sudden confusion, trouble speaking or understanding, sudden trouble seeing in one or both eyes, sudden trouble walking, dizziness, loss of balance or coordination, sudden severe headache with no cause. Call 911 or go to the Emergency Room. CONGESTIVE HEART FAILURE: If you have been diagnosed with Congestive Heart Failure (CHF) and your symptoms return, make an appointment with your physician Weigh yourself daily. Notify your physician if you have a weight gain of two or more pounds in one day or five or more pounds in one week. If you experience any difficulty breathing, please call 911 BLEEDING: Although the risk of bleeding is minimal, it can happen. If you have any bleeding from the site, apply firm pressure above the puncture site for 10-15 minutes. If the bleeding does not stop, continue manual pressure and call 911 Contact your physician if: You develop a fever greater than 101 degrees Fahrenheit Your site becomes reddened or has any drainage You have an increase in pain or burning at the site or if a large knot forms at the site. If you experience chest pain, shortness of breath, dizziness, or extreme tiredness, stop the activity and rest. Please notify your physicians office if you experience any of these symptoms and they are not relieved by rest please call 911! (2) Tobacco abuse Current Visit: Yes Status: Chronic Smoking cessation counseling given. Discussion w patient/family: The assessment and plan as outlined above was discussed with the patient and/or family members who expressed understanding and agreement. All questions were answered. Thank you for involving us in the care of your patient. Please call with any questions. Subjective Principal diagnosis: NSTEMI Interval history: Mr. Dyson is resting comfortably in bed with significant other at bedside. He denies recurrent chest pain. Denies problems with his right femoral access site. Objective General: Conversant, No Apparent Distress HEENT: Atraumatic, Normocephaly, Mucus Membranes Moist Neck: No JVD, Normal carotid pulses Cardiac: Reg Rate and Rhythm, Normal S1 and S2, No Murmur Lungs: Normal Breath Sounds, No Wheeze, Rales, Rhonchi Neuro: Alert and responsive, No focal deficits noted Abdomen: Soft, Non-Tender Skin: No rashes noted on visualized skin Musculoskeletal: No Chest Wall Tenderness Extremities: No Clubbing, No Cyanosis, No Edema, Normal Pulses, Other (Dressing removed. No hematoma, redness, or drainage.) Results 02/17/19 09:57 02/16/19 22:53 Lab Results 02/17/19 13:14 Troponin I 1.16 H* - Imaging and Cardiology Echo: pending Cardiac cath: report reviewed - EKG Interpretation EKG results cardiology: personally reviewed Consult Discharge Plan - Plan Instructions: Metoprolol (By mouth), Ticagrelor (By mouth), Heart Healthy Diet (DC) Additional Instructions: RISK FACTORS: STOP SMOKING: If you smoke, STOP. Smoking or tobacco use significantly increases your risk of heart disease because nicotine causes the arteries to narrow or constrict. It also causes fats to stick to the artery. Your chances of having a heart attack are greatly increased if you continue to smoke. For more information, call the education line for smoking cessation 1-030-LNJGHCL EAT A LOW FAT/CHOLESTEROL/SODIUM DIET: This diet may help reduce your chances of having a heart attack. LIFTING: Avoid lifting anything more than 10 pounds for 5-7 days Prior to straining, laughing, sneezing and/or coughing, apply manual pressure directly over insertion site. ACTIVITY: You may walk or climb stairs as tolerated You can resume sexual activity as tolerated In general, you are encouraged to engage in a minimum of 30 minutes or more of moderate intensity physical activity, such as brisk walking, daily or at least 3-4 times weekly BATHING Do not submerge the site into water (bath tub, hot tub, swimming pool) for 1 week. This can be a source for infection into the blood stream. You may shower after 24 hours SITE CARE: After 24 hours, you may remove the dressing and leave the site open to air. Keep the site clean and dry. Clean gently and pat dry. You can expect bruising and tenderness that gradually resolve within a week or two. Return to work as instructed per your physician Resume driving as instructed per physician Keep all scheduled follow up appointments Resume medications as instructed IMPORTANT: If prescribed a Platelet Aggregation Inhibitor such as, Plavix, Brilinta or Effient: Duration of therapy is minimum one year These medications are often used in combination with Aspirin in prevention of future heart attacks Never discontinue unless consult with your Die Cutter Apprentice STROKE (CVA) Risk factors for a stroke are: Age, cigarette smoking, diabetes, excessive alcohol consumption, family history, high blood pressure, overweight, physical inactivity, prior stroke, heart attack, diagnosis of carotid artery stenosis or other artery disease. Warning signs: Sudden numbness or weakness of the face, arm or leg; especially on one side of the body, sudden confusion, trouble speaking or understanding, sudden trouble seeing in one or both eyes, sudden trouble walking, dizziness, loss of balance or coordination, sudden severe headache with no cause. Call 911 or go to the Emergency Room. CONGESTIVE HEART FAILURE: If you have been diagnosed with Congestive Heart Failure (CHF) and your symptoms return, make an appointment with your physician Weigh yourself daily. Notify your physician if you have a weight gain of two or more pounds in one day or five or more pounds in one week. If you experience any difficulty breathing, please call 911 BLEEDING: Although the risk of bleeding is minimal, it can happen. If you have any bleeding from the site, apply firm pressure above the puncture site for 10-15 minutes. If the bleeding does not stop, continue manual pressure and call 911 Contact your physician if: You develop a fever greater than 101 degrees Fahrenheit Your site becomes reddened or has any drainage You have an increase in pain or burning at the site or if a large knot forms at the site. If you experience chest pain, shortness of breath, dizziness, or extreme tiredness, stop the activity and rest. Please notify your physicians office if you experience any of these symptoms and they are not relieved by rest please call 911! Follow-up appointments: If there is not an appointment listed below, please call your physician and schedule a follow-up appointment. If you have congestive heart failure and your symptoms return, make an appointment with your physician. Medication List: Carry an up to date list of medications you are taking at all time. We have given you an updated medication list including any new medications that you have been prescribed. Please provide that list to your primary provider Symptoms: If your condition changes or you experience any of the following symptoms, notify your physician immediately: Unusual or worsening pain, fever, persistent nausea and vomiting, bleeding, increase in swelling (especially in your legs), sudden weight gain, extreme dizziness, chest pain, increased drainage or redness from a wound or incision. Go to the emergency department if you experience a problem with breathing. Weights: If you have a history of swelling or shortness of breath, weigh yourself daily and notify your physician if you have a weight gain of two or more pounds in one day or 5 or more pounds in a week. If you experience any of the warning signs for stroke: Sudden numbness or weakness of the face, arm or leg; especially on one side of the body, sudden confusion, trouble speaking or understanding, sudden trouble seeing in one or both eyes, sudden trouble walking, dizziness, loss of balance or coordination, sudden sever headache with no cause; Call 911 or go to the emergency room. Stroke is a medical emergency. Some risk factors for stroke: Age, cigarette smoking, diabetes, excessive alcohol consumption, family history, high blood pressure, overweight, physical inactivity, prior stroke, heart attack, diagnosis of carotid artery stenosis or other artery disease. If you smoke, STOP: Smoking or tobacco use significantly increases your risk of heart and lung disease. Your chance of disease greatly increases if you continue to smoke. For more information, call the [place] tobacco quit line for smoking cessation 5-799-KEMJ-NOW ( ) Referrals: Easton Hoffmann MD [Partnered Physician] - (Appointment has been requested. The office will call you with an appointment time and day. Please call the number provided if you do not hear from them with in 1-2 working days. ) Mikey Johnson MD [Partnered Physician] - (Appointment has been requsted. They will call you with appointment time and day. Please contact the number provided if you do not hear anything with in 1-2 working days. ) [facility] [Primary Care Provider] - (Please call to make a follow up appointment with in 1 week from discharge date. ) Prescriptions: Aspirin 81 mg PO DAILY #30 tab.chew Ticagrelor [Brilinta] 90 mg PO BID #60 tablet Atorvastatin [Lipitor] 80 mg PO HS #30 tablet Metoprolol [Lopressor] 25 mg PO BID #60 tablet Nicotine Patch [Nicoderm] 21 mg TD DAILY #30 patch.[id number] Nitroglycerin 0.4 mg SL [id number] PRN #10 tab.subl PRN Reason: Chest Pain
== END 2019-02-18 12:09 | disposition home or self-care (01) | DRG 247 ==
LOC: 3BNU 22:29 → EMEROOARM 22:29 → 3BNU 02-17 00:52
PROVIDERS: ADMIT Pediatrics; ATTEND Pediatrics